=== PATIENT | female | born 1990 | race Caucasian/White ===

== ENCOUNTER 2020-04-14 15:29 | Emergency (ER) | payer SELFPAY ==
[~2020-04-14] VITALS: Ht 152.4 cm; Wt 57.0 kg
--- NOTE | 2020-04-14 16:25 | PHYS DOC ---
Past History Past Medical History: Anxiety, Bipolar, Depression Past Surgical History: Alcohol Use: None General Adult EDM: Chief Complaint: DIZZY/LIGHT HEADED HPI: HPI: The history was obtained from the patient. Patient is a 30-year-old female with PMH opiate dependence, anxiety, bipolar disorder who presents with a chief complaint of dizziness. Patient states she had slow onset feelings of lightheadedness and dizziness yesterday evening while at rest. She does endorse room spinning sensation. She states when she moves her head back and forth that seems to make the symptoms worse. She notes nausea without vomiting. She states today she has not been able to ambulate very well due to the dizziness. Denies syncope. Denies chest pain or shortness of breath. States that she does take Depakote, hydroxyzine, and trazodone daily. She states that she does not take her Suboxone or baclofen anymore. She denies any acute vision or hearing changes. She denies any weakness in one extremity. She denies any confusion or slurred speech. Denies any recent upper respiratory illness. Has not tried m edicine at home to help. No other complaints. Review of Systems: Review of Systems: Constitutional: Denies fever or chills Eyes: Denies change in visual acuity HENT: Denies nasal congestion or sore throat Respiratory: Denies cough or shortness of breath Cardiovascular: Denies chest pain or edema GI: Denies abdominal pain, nausea, vomiting, bloody stools or diarrhea : Denies dysuria Musculoskeletal: Denies back pain or joint pain Integument: Denies rash Neurologic: Positive for dizziness Endocrine: Denies polyuria or polydipsia Lymphatic: Denies swollen glands Psychiatric: Denies depression or anxiety Heart Score: Risk Factors: Risk Factors: DM, Current or recent (<one month) smoker, HTN, HLP, family history of CAD, obesity. Risk Scores: Score 0 - 3: 2.5% MACE over next 6 weeks - Discharge Home Score 4 - 6: 20.3% MACE over next 6 weeks - Admit for Clinical Observation Score 7 - 10: 72.7% MACE over next 6 weeks - Early Invasive Strategies Current Medications: Current Meds: Current Medications Medications (Trade) Dose Ordered Sig/Adebayo Start Time Stop Time Status Last Admin Dose Admin Meclizine HCl (Antivert) 25 mg 1X ONCE 04/14/20 16:00 04/14/20 16:01 UNV Metoclopramide HCl (Reglan) 10 mg 1X ONCE 04/14/20 16:00 04/14/20 16:01 UNV Allergies: Allergies: Allergies Uncoded Allergies Type Severity Reaction Last Updated Verified SULFA Allergy Unknown 04/14/20 Physical Exam: PE: Constitutional: Well developed, well nourished, no acute distress, non-toxic appearance. [] HENT: Normocephalic, atraumatic, bilateral external ears normal, oropharynx moist, no oral exudates, nose normal. [] Eyes: PERRLA, EOMI, conjunctiva normal, no discharge. [] Neck: Normal range of motion, no tenderness, supple, no stridor. [] Cardiovascular:Heart rate regular rhythm, no murmur [] Lungs & Thorax: Bilateral breath sounds clear to auscultation [] Abdomen:soft, no tenderness, no masses, no pulsatile masses. [] Skin: Warm, dry, no erythema, no rash. [] Back: No tenderness, no CVA tenderness. [] Extremities: No tenderness, no cyanosis, no clubbing, ROM intact, no edema. [] Neurologic: Alert with intact cognitive function. No aphasia, dysarthria, or neglect. GCS 15. Pupils 3 mm briskly reactive b/l. No APD present. Cranial nerves 2-12 grossly intact; no facial asymmetry present, tongue midline, shoulder shrugging strength intact. Strength 5/5 and symmetric throughout. Light touch sensation intact throughout. Cerebellar testing appropriate without evidence of dysdiadochokinesia. DTR's 2+ in all 4 extremities. Negative pronator drift bilaterally. Gait normal. Positive Stephan-Hallpike to the left. Negative hints exam. Psychologic: Affect normal, judgement normal, mood normal. [] Current Patient Data: Labs: Laboratory Tests Test 04/14/20 16:57 04/14/20 17:16 White Blood Count 8.5 x10^3/uL Red Blood Count 4.51 x10^6/uL Hemoglobin 14.1 g/dL Hematocrit 41.9 % Mean Corpuscular Volume 93 fL Mean Corpuscular Hemoglobin 31 pg Mean Corpuscular Hemoglobin Concent 34 g/dL Red Cell Distribution Width 14.8 % Platelet Count 395 x10^3/uL Neutrophils (%) (Auto) 56 % Lymphocytes (%) (Auto) 36 % Monocytes (%) (Auto) 6 % Eosinophils (%) (Auto) 1 % Basophils (%) (Auto) 1 % Neutrophils # (Auto) 4.7 x10^3uL Lymphocytes # (Auto) 3.1 x10^3/uL Monocytes # (Auto) 0.5 x10^3/uL Eosinophils # (Auto) 0.1 x10^3/uL Basophils # (Auto) 0.0 x10^3/uL Sodium Level 140 mmol/L Potassium Level 4.4 mmol/L Chloride Level 103 mmol/L Carbon Dioxide Level 31 mmol/L Anion Gap 6 Blood Urea Nitrogen 7 mg/dL Creatinine 0.8 mg/dL Estimated GFR (Cockcroft-Gault) 83.1 Glucose Level 97 mg/dL Calcium Level 9.1 mg/dL Salicylates Level < 2.8 mg/dL Salicylate Last Dose Date Unknown Salicylate Last Dose Time Unknown Valproic Acid (Depakene) Level 76 mcg/mL Valproic Acid Last Dose Date 04/14/2020 Valproic Acid Last Dose Time 0800 Urine Collection Type Unknown Urine Color Yellow Urine Clarity Hazy Urine pH 8.5 Urine Specific [place] 1.020 Urine Protein Neg Urine Glucose (UA) Neg mg/dL Urine Ketones (Stick) Neg mg/dL Urine Blood Neg Urine Nitrite Neg Urine Bilirubin Neg Urine Urobilinogen Dipstick 0.2 mg/dL Urine Leukocyte Esterase Neg Urine RBC 1-2 /HPF Urine WBC Occ /HPF Urine Squamous Epithelial Cells Mod /LPF Urine Bacteria Few /HPF Urine Mucus Slight /LPF Urine Test Negative Current Medications Medications (Trade) Dose Ordered Sig/Adebayo Route PRN Reason Start Time Stop Time Status Last Admin Dose Admin Meclizine HCl (Antivert) 25 mg 1X ONCE PO 04/14/20 16:30 04/14/20 16:31 DC 04/14/20 17:04 Metoclopramide HCl (Reglan) 10 mg 1X ONCE PO 04/14/20 16:30 04/14/20 16:31 DC 04/14/20 17:04 Vital Signs: Vital Signs Date Time Temp Pulse Resp B/P (MAP) Pulse Ox O2 Delivery O2 Flow Rate FiO2 04/14/20 15:40 98.3 80 16 105/67 (80) 100 Room Air EKG: EKG: [] EKG consistent with normal sinus rhythm. Ventricular rate of 73 bpm. Alexander normal. Nonspecific interventricular conduction delay present. No acute ische azucena changes noted. Radiology/Procedures: Radiology/Procedures: [][address] [id number] IMAGING REPORT Signed PATIENT: JONELLE NELSON ACCOUNT: [id number] : 1990 LOCATION: ER AGE: 30 SEX: F EXAM STATUS: REG ER ORD. PHYSICIAN: DEISY VILLATORO DO REASON: dizziness PROCEDURE: CHEST AP ONLY CHEST AP ONLY Clinical History: Reason: dizziness / Spl. Instructions: / History: Technique: AP view of the chest was obtained at 04/14/2020 3:58 PM. Comparison: None. Findings: The cardiomediastinal silhouette is normal. The pulmonary vasculature is normal. The lungs and pleural margins are clear. Impression: No evidence of an acute cardiopulmonary process. Electronically signed by: Carol Ann Jules III, MD (04/14/2020 4:56 PM) [facility] DICTATED AND SIGNED BY: CAROL ANN JULES III, MD DATE: 04/14/20 1656 CC: PCP,WESLEY; DEISY VILLATORO DO ~ Course & Med Decision Making: Course & Med Decision Making Pertinent Labs and Imaging studies reviewed. (See chart for details) Patient is a well-appearing 30-year-old female who presents with chief complaint of dizziness associated with nausea. She does state that different head position and movements make the symptoms worse. Initial vital signs unremarkable. Physical exam without any neurologic deficits. Hints exam neg ative. This is most likely peripheral in nature. Given she has a normal neurologic exam CT imaging of the head will be deferred. Chest x-ray nonacute. Basic labs were obtained and were nonacute. Patient was given meclizine and Zofran. On repeat examination she states her symptoms have improved significantly. She has been ambulatory without difficulty. Vital signs remained stable on repeat examination. Overall very low suspicion for central involvement. I do not feel she requires inpatient management. Patient is agreeable to this plan. She will be discharged home with meclizine and Zofran. Return precautions were discussed and understood. Stable for discharge. Usman Disclaimer: Usman Disclaimer: This electronic medical record was generated, in whole or in part, using a voice recognition dictation system. Departure Departure: Impression: Primary Impression: Dizziness Additional Impression: Nausea Disposition: 01 HOME/RESIDENCE PRIOR TO ADM Condition: STABLE Referrals: PCP,NO (PCP) Patient Instructions: Benign Positional Vertigo Additional Instructions: Please follow-up with your primary care physician in the next 2 to 3 days. Scripts Ondansetron Hcl (ZOFRAN) 8 Mg Tablet 4 MG PO TID PRN for nasuea , #9 TAB Prov: DEISY VILLATORO DO 04/14/20 Meclizine Hcl (MECLIZINE HCL) 25 Mg Tablet 1 TAB PO TID PRN PRN for PER PROTOCOL, #15 TAB Prov: DEISY VILLATORO DO 04/14/20 Justification of Admission: Justification of Admission: Justification of Admission Dx: N/A DEISY VILLATORO DO Apr 14, 2020 16:25
[2020-04-14] MEDS ORDERED: METOCLOPRAMIDE 10 MG TABLET PO ONE (16:30)
[2020-04-14] MEDS ORDERED: MECLIZINE 12.5 MG TABLET. PO ONE (16:30)
--- NOTE | 2020-04-14 16:59 | RAD ---
CHEST AP ONLY Clinical History: Reason: dizziness / Spl. Instructions: / History: Technique: AP view of the chest was obtained at 04/14/2020 3:58 PM. Comparison: None. Findings: The cardiomediastinal silhouette is normal. The pulmonary vasculature is normal. The lungs and pleural margins are clear. Impression: No evidence of an acute cardiopulmonary process. Electronically signed by: Giacomo Jules III, MD (04/14/2020 4:56 PM) [facility]
[2020-04-14 17:14] LABS: BASO % 1 % (0-3); EOS # 0.1 x10^3/uL (0.0-0.7); EOS % 1 % (0-3); HEMATOCRIT 41.9 % (36.0-47.0); HEMOGLOBIN 14.1 g/dL (12.0-15.5); LYMPH # 3.1 x10^3/uL (1.0-4.8); LYMPH % 36 % (24-48); MEAN CORPUSCULAR HEMOGLOBIN 31 pg (25-35); MEAN CORPUSCULAR HGB CONC 34 g/dL (31-37); MEAN CORPUSCULAR VOLUME 93 fL (79-100); MONO # 0.5 x10^3/uL (0.0-1.1); MONO % 6 % (0-9); NEUT # 4.7 x10^3uL (1.8-7.7); NEUT % 56 % (31-73); PLATELET COUNT 395 x10^3/uL (140-400); RED BLOOD COUNT 4.51 x10^6/uL (3.50-5.40); RED CELL DISTRIBUTION WIDTH 14.8 % (11.5-14.5); WHITE BLOOD COUNT 8.5 x10^3/uL (4.0-11.0)
[2020-04-14 17:23] LABS: CALCIUM 9.1 mg/dL (8.5-10.1); CREATININE 0.8 mg/dL (0.6-1.0); GFR 83.1; POTASSIUM 4.4 mmol/L (3.5-5.1); SALIC < 2.8 mg/dL (2.8-20.0)
[2020-04-14 17:28] LABS: VAL ACID 76 mcg/mL (50-100)
[2020-04-14 17:35] LABS: BACTERIA,URINE FEW /HPF (0-FEW); BILIRUBIN,URINE NEG (NEG); CLARITY,URINE HAZY; COLOR,URINE YELLOW; GLUCOSE,URINE NEG (NEG); NITRITE,URINE NEG (NEG); SQUAMOUS EPITHELIAL CELL,UR MOD /LPF; UROBILINOGEN,URINE 0.2 mg/dL (0.2 mg/dL); WBC,URINE OCC /HPF (0-4)
[2020-04-14 17:36] LABS: U PREG PATIENT NEGATIVE (NEG)
--- NOTE | 2020-04-14 17:36 | EKG ---
[address] [address] Test Date: 2020-04-14 Test Time: 16:16:39 Pat Name: JONELLE NELSON Department: Room: Gender: F Leadership Development Instructor: BOB : 1990 Requested By: DEISY VILLATORO Order Number: [id number] Reading MD: Peyman Deras MD Measurements Intervals [place] Rate: 73 P: 61 DC: 156 QRS: 191 QRSD: 94 T: 48 QT: 366 QTc: 407 Interpretive Statements SINUS RHYTHM RBBB LIMB LEAD MISPLACEMENT Electronically Signed On 04-15-2020 14:16:02 CDT by Peyman Deras MD
[2020-04-14 17:40] VITALS: BP 130/90
[2020-04-14] MEDS ORDERED: ONDA8TAB9 PO (17:47)
[2020-04-14] MEDS ORDERED: MECL-75 PO (17:47)
== END 2020-04-14 18:21 | disposition home or self-care (01) ==
LOC: ER 15:29
DX: R42 Dizziness and giddiness (principal); R11.0 Nausea; F41.9 Anxiety disorder, unspecified; F31.9 Bipolar disorder, unspecified; F11.20 Opioid dependence, uncomplicated; Z88.2 Allergy status to sulfonamides
CPT/HCPCS: 36415; 71045; 80048; 80164; 80329; 81001; 81025; 85025; 93005; 99285; J8597; G0480